=== PATIENT | female | born 1995 | race African-American/Black ===

== ENCOUNTER 2016-09-11 09:13 | Emergency (ER) | payer OTHER, BC ==
[~2016-09-11] VITALS: Ht 172.7 cm; Wt 116.4 kg
[~2016-09-11 09:13] MED LIST: NOHOMEMEDS; PRENATAL MULTI1 EAC2 PO; Vitron-C,Hematogen,F PO
[2016-09-11 09:16] VITALS: BP 137/86
[2016-09-11] MEDS ORDERED: IRON325 MG PO (10:44)
[2016-09-11] MEDS ORDERED: MOBIC7.5 MG PO (11:00)
[2016-09-11] MEDS ORDERED: FLEXERIL10 MG PO (11:00)
== END 2016-09-11 11:15 | disposition home or self-care (01) ==
LOC: EME 09:13
DX: S39.012A Strain of muscle, fascia and tendon of lower back, initial encounter (principal); S43.402A Unspecified sprain of left shoulder joint, initial encounter; V44.5XXA Car driver injured in collision with heavy transport vehicle or bus in traffic accident, initial encounter
CPT/HCPCS: 73030; 99281; 99283